=== PATIENT | female | born 1975 | race Caucasian/White ===

== ENCOUNTER → 2021-04-19 | Outpatient (CLI) | payer BC | LOC: EROP 13:07 | DX: Z20.822 Contact with and (suspected) exposure to COVID-19 (principal) | CPT/HCPCS: U0002 ==

== ENCOUNTER → 2021-05-31 | Outpatient (CLI) | payer BC ==
[2021-06-01 08:14] LABS: RHEUMATOID ARTHRITIS FACTOR <10.0 IU/mL (<14.0)
== END ==
LOC: LAB 13:29
PROVIDERS: Internal Medicine Nephrology
DX: M13.0 Polyarthritis, unspecified (principal)
CPT/HCPCS: 36415; 81374; 85652; 86038; 86140; 86200; 86431

== ENCOUNTER → 2021-06-03 | Outpatient (CLI) | payer BC | LOC: MRI 14:18 | DX: M25.561 Pain in right knee (principal); M25.461 Effusion, right knee; M25.462 Effusion, left knee; S83.012A Lateral subluxation of left patella, initial encounter; M22.42 Chondromalacia patellae, left knee; M71.21 Synovial cyst of popliteal space [Baker], right knee | CPT/HCPCS: 73718 ==